=== PATIENT | male | born 1975 | race Asian ===

== ENCOUNTER 2019-05-22 17:17 | Emergency (ER) | payer BC ==
[2019-05-22] MEDS: OXYMETAZOLINE 0.05% 15 ML NAS SPRAY NASAL (17:59)
[2019-05-22 19:06] LABS: ADD MAN DIFF? NO
[2019-05-22 19:08] LABS: BASOPHIL # 0.1 10^3/ul (0.0-0.1); BASOPHILS % 0.5 % (0.0-2.0); EOSINOPHILS # 0.2 10^3/ul (0.0-0.5); EOSINOPHILS % 1.6 % (0.0-7.0); HEMATOCRIT 41.9 % (42.0-52.0); LYMPHOCYTES # 1.5 10^3/ul (0.8-2.9); LYMPHOCYTES % 12.2 % (15.0-51.0); MEAN CORPUSCULAR HEMOGLOBIN 29.4 pg (29.0-33.0); MEAN CORPUSCULAR HGB CONC 33.4 g/dl (32.0-37.0); MEAN PLATELET VOLUME 10.5 fl (7.4-10.4); MONOCYTE # 0.6 10^3/ul (0.3-0.9); NEUTROPHIL # 9.8 10^3/ul (1.6-7.5); NEUTROPHILS % 80.5 % (39.0-77.0); PLATELET COUNT 211 10^3/UL (140-415); RED BLOOD COUNT 4.76 10^6/ul (4.70-6.10); RED CELL DISTRIBUTION WIDTH 12.7 % (11.5-14.5)
[2019-05-22 19:08] LABS: WHITE BLOOD COUNT 12.1 10^3/ul (4.8-10.8)
== END 2019-05-22 19:34 | disposition home or self-care (01) ==
LOC: FTE 17:17
DX: R04.0 Epistaxis (principal)
CPT/HCPCS: 30903; 85025; 99283-25

== ENCOUNTER 2019-05-24 09:42 | Emergency (ER) | payer BC | END 2019-05-24 11:53 | disposition home or self-care (01) | LOC: FTE 11:53 | DX: R04.0 Epistaxis (principal); Z48.00 Encounter for change or removal of nonsurgical wound dressing | CPT/HCPCS: 99282 ==

== ENCOUNTER 2019-05-25 13:30 | Emergency (ER) | payer BC | END 2019-05-25 15:17 | disposition home or self-care (01) | LOC: FTE 13:30 | DX: T17.1XXA Foreign body in nostril, initial encounter (principal); X58.XXXA Exposure to other specified factors, initial encounter; Y92.9 Unspecified place or not applicable | CPT/HCPCS: 30300; 99283-25 ==